=== PATIENT | female | born 1985 | race Caucasian/White ===

== ENCOUNTER 2020-01-25 15:32 | Outpatient (CLI) | payer OTHER ==
--- NOTE | 2020-01-25 16:52 | Ultrasound Report ---
PROCEDURE: OB First Trimester INDICATIONS: EARLY DATING OUTSIDE/PRIOR DATING DATA: Last menstrual period (LMP): 11/18/2019. LMP-based estimated date of delivery (GURVINDER): 08/26/2020. First dating scan (date and location): 02/04/2020. Estimated date of delivery (GURVINDER) from first dating scan: 08/29/2020. TECHNIQUE: Real-time scanning was performed of the fetus and maternal pelvic organs, with image documentation. COMPARISON: None FINDINGS: Embryo: Single live intrauterine is identified with crown-rump length measuring 2.4 cm coa rse 9-9 weeks 0 days. Heart rate is present at 177 bpm. Cervix is closed. It is noted there is a smal l perigestational sac hemorrhage measuring 2.1 x 1.6 x 0.8 cm. Maternal organs: Ovaries demonstrate a right corpus luteal cyst.. Limited images through the kidney s demonstrate no hydronephrosis. IMPRESSION: 1. Single live intrauterine with ultrasound gestational age today of 9 weeks 0 days corresp onding to ultrasound GURVINDER of 08/30/2019. 2. Small perigestational sac hemorrhage as above. Reviewed by: Jocy Diaz MD on 01/25/2020 4:51 PM PST Approved by: Jocy Diaz MD on 01/25/2020 4:51 PM PST Station ID: [id number]
== END 2020-01-25 15:33 | disposition home or self-care (01) ==
LOC: DI 15:32
PROVIDERS: ATTEND Midwife
DX: Z33.1 Pregnant state, incidental (principal)